=== PATIENT | male | born 1980 | race African-American/Black ===

== ENCOUNTER 2023-04-19 10:22 | Emergency (ER) | payer OTHER ==
[2023-04-19 10:44] VITALS: BP 142/86; PULSE 90; RESP 16; TEMP 98.3; BMI 35.2
== END 2023-04-19 11:18 | disposition home or self-care (01) ==
LOC: FER 10:22
DX: S00.03XA Contusion of scalp, initial encounter (principal); W20.8XXA Other cause of strike by thrown, projected or falling object, initial encounter; Y92.219 Unspecified school as the place of occurrence of the external cause
CPT/HCPCS: 70450-TC; 72125-TC; 99284-25